=== PATIENT | female | born 1935 | race African-American/Black ===

== ENCOUNTER → 2016-09-26 | Outpatient (CLI) | payer MEDICARE, OTHER | LOC: RAD 11:40 | PROVIDERS: ATTEND Ophthalmology | DX: H53.453 Other localized visual field defect, bilateral (principal) | CPT/HCPCS: 82565; 70553; A9577 ==

== ENCOUNTER → 2016-10-09 | Outpatient (CLI) | payer MEDICARE, OTHER | LOC: RAD 10:41 | PROVIDERS: ATTEND Ophthalmology | DX: H53.453 Other localized visual field defect, bilateral (principal) | CPT/HCPCS: 70544 ==